=== PATIENT | female | born 1970 | race Two or more races ===

== ENCOUNTER 2017-02-28 15:35 | Emergency (ER) | payer OTHER ==
[~2017-02-28] VITALS: Ht 167.6 cm; Wt 90.7 kg
[2017-02-28 15:35] VITALS: BP 104/64
[2017-02-28] MEDS ORDERED: levETIRAcetam 500 MG in D5W 95 ML IVPB ONE (16:15)
[2017-02-28] MEDS ORDERED: Morphine Sulfate 4mg/ml Inj IVP ONE ×2 (16:15→19:45)
[2017-02-28 16:22] LABS: BASOPHILS % (AUTO) 1.5 % (0.0-2.0); EOSINOPHILS % (AUTO) 1.1 % (0.0-3.0); LYMPHOCYTES % (AUTO) 42.7 % (20.0-45.0); MEAN CORPUSCULAR HEMOGLOBIN 30.9 PG (27.0-31.0); MEAN CORPUSCULAR HGB CONC 32.3 G/DL (32.0-36.0); MEAN CORPUSCULAR VOLUME 96 FL (80-99); NEUTROPHILS % (AUTO) 46.7 % (45.0-75.0); PLATELET COUNT 264 K/UL (150-450); RED BLOOD COUNT 3.69 M/UL (4.20-5.40); RED CELL DISTRIBUTION WIDTH 12.7 % (11.6-14.8); WHITE BLOOD COUNT 5.7 K/UL (4.8-10.8)
[2017-02-28] MEDS ORDERED: levETIRAcetam 500mg vial IV ONE (16:57)
[2017-02-28 17:17] LABS: ALANINE AMINOTRANSFERASE 36 U/L (12-78); ALBUMIN/GLOBULIN RATIO 0.9 (1.0-2.7); ALCOHOL < 3 mg/dL; ANION GAP 13 mmol/L (5-15); ASPARTATE AMINO TRANSFERASE 27 U/L (15-37); CALCIUM 9.9 MG/DL (8.5-10.1); CARBON DIOXIDE 23 MMOL/L (21-32); CHLORIDE 106 MMOL/L (98-107); CREATININE 1.1 MG/DL (0.55-1.30); POTASSIUM 4.1 MMOL/L (3.5-5.1); SODIUM 142 MMOL/L (136-145); TOTAL PROTEIN 8.1 G/DL (6.4-8.2)
--- NOTE | 2017-02-28 17:25 | Diagnostic Imaging Report ---
Indication: Seizures Technique: Continuous helical CT scanning of the head was performed without intravenous contrast material. Axial and coronal 5 mm sections were generated. Radiation dose was minimized using automated exposure control Dose: Total Dose Length Product - DLP [address] Dose Index - CTDIvol(s) 70.38 mGy. Comparison: None Findings: The ventricular system is normal in size and configuration. There is no shift of midline structures. No abnormal extra-axial fluid collections are noted. There is no evidence of intracerebral bleeding. No other abnormal high or low density areas are noted within the brain. Intact calvarium. Visualized orbits and sinuses are unremarkable Impression: Normal CT scan of the head without contrast material. The CT scanner at [facility] is accredited by the [employer] and the scans are performed using protocols designed to limit radiation exposure to as low as reasonably achievable to attain images of sufficient resolution adequate for diagnostic evaluation.
[2017-02-28 18:00] VITALS: BP 122/80
--- NOTE | 2017-02-28 18:16 | Diagnostic Imaging Report ---
Indication: COUGH Technique: One view of the chest Comparison: none Findings: Lungs and pleural spaces are clear. Heart size is normal. Impression: No acute process
[2017-02-28 19:30] VITALS: BP 110/82
[2017-02-28] MEDS ORDERED: DILAUDID4 MG ORAL (19:49)
[2017-02-28] MEDS ORDERED: ATORVASTATIN CA40 MG ORAL (19:49)
[2017-02-28] MEDS ORDERED: OXYCONTIN10 MG ORAL (19:49)
[2017-02-28] MEDS ORDERED: HYDROCHLOROTH12.5 M2 ORAL (19:49)
[2017-02-28] MEDS ORDERED: LEVETIRACETAM500 MG ORAL (19:49)
[2017-02-28] MEDS ORDERED: PHENOBARBITAL100 MG ORAL (19:49)
[2017-02-28] MEDS ORDERED: CYCLOBENZAPRINE10 MG ORAL (19:49)
[2017-02-28] MEDS ORDERED: HYDROCHLOROTH12.5 MG ORAL (19:49)
[2017-02-28] MEDS ORDERED: AMLODIPINE BESY10 MG ORAL (19:49)
[2017-02-28] MEDS ORDERED: ATORVASTATIN CA80 MG ORAL (19:49)
[2017-02-28] MEDS ORDERED: BENAZEPRIL HCL40 MG ORAL (19:49)
[2017-02-28] MEDS ORDERED: ALBUTEROL2.5 MG/3 M INH (19:49)
[2017-02-28] MEDS ORDERED: DICLOFENAC SOD100 G1 TP (19:49)
[2017-02-28] MEDS ORDERED: VENTOLIN HFA18 GM INH (19:49)
--- NOTE | 2017-02-28 20:04 | Emergency Room Report ---
History of Present Illness General Chief Complaint: Seizure Source: Patient, EMS Present Illness HPI This patient has a history of sickle cell disease and seizure disorder. She states that she has chronic pain. She has had ongoing pain and was that her pain management clinic today and had a breakthrough seizure. She states she is taking her pain management medications. She states she has pain in her right hip and leg. She states this has been ongoing. She states she is also had a recent upper respiratory illness to include cough and congestion. She did see her primary care physician for this. She denies fever or chills. She denies nausea or vomiting. She is begging for narcotic pain medications. She is crying hysterically. She has no other complaints. Allergies: Coded Allergies: No Known Allergies (Unverified , 02/28/17) Patient History Past Medical History: see triage record, seizures, other - SCD Social History: Denies: smoking, alcohol use, drug use Last Menstrual Period: unk Reviewed Nursing Documentation: PMH: Agreed, PSxH: Agreed Nursing Documentation-PMH Hx Hypertension: Yes - Sickle Cell Hx Seizures: Yes Review of Systems All Other Systems: negative except mentioned in HPI Physical Exam Vital Signs Date Time Temp Pulse Resp B/P (MAP) Pulse Ox O2 Delivery O2 Flow Rate FiO2 02/28/17 15:31 97.3 123 24 104/64 100 Room Air Sp02 EP Interpretation: reviewed, normal General Appearance: no apparent distress, alert, GCS 15, non-toxic Head: normocephalic, atraumatic Eyes: bilateral eye normal inspection, bilateral eye PERRL ENT: hearing grossly normal, normal pharynx, no angioedema, normal voice Neck: full range of motion, supple/symm/no masses Respiratory: chest non-tender, lungs clear, normal breath sounds, speaking full sentences Cardiovascular #1: regular rate, rhythm, no edema Gastrointestinal: normal bowel sounds, non tender, soft, non-distended, no guarding, no rebound Rectal: deferred Musculoskeletal: back normal, other - Pain with ROM of RLE Neurologic: alert, oriented x3, responsive, motor strength/tone normal, sensory intact, speech normal Psychiatric: judgement/insight normal, memory normal, mood/affect normal, no suicidal/homicidal ideation Skin: normal color, no rash, warm/dry, well hydrated Medical Decision Making Diagnostic Impression: Primary Impression: Sickle cell pain crisis ER Course This patient has a history of chronic pain. I suspect there also may be narcotic dependence and narcotic seeking behavior. There is no evidence of anemia. The patient is requiring IV narcotics for pain control. The patient was transferred to [facility] for sickle cell pain crises. Dr. Worthington is the accepting physician. Laboratory Tests Test 02/28/17 15:40 White Blood Count 5.7 K/UL (4.8-10.8) Red Blood Count 3.69 M/UL (4.20-5.40) L Hemoglobin 11.4 G/DL (12.0-16.0) L Hematocrit 35.3 % (37.0-47.0) L Mean Corpuscular Volume 96 FL (80-99) Mean Corpuscular Hemoglobin 30.9 PG (27.0-31.0) Mean Corpuscular Hemoglobin Concent 32.3 G/DL (32.0-36.0) Red Cell Distribution Width 12.7 % (11.6-14.8) Platelet Count 264 K/UL (150-450) Mean Platelet Volume 6.0 FL (6.5-10.1) L Neutrophils (%) (Auto) 46.7 % (45.0-75.0) Lymphocytes (%) (Auto) 42.7 % (20.0-45.0) Monocytes (%) (Auto) 8.0 % (1.0-10.0) Eosinophils (%) (Auto) 1.1 % (0.0-3.0) Basophils (%) (Auto) 1.5 % (0.0-2.0) Sodium Level 142 MMOL/L (136-145) Potassium Level 4.1 MMOL/L (3.5-5.1) Chloride Level 106 MMOL/L (98-107) Carbon Dioxide Level 23 MMOL/L (21-32) Anion Gap 13 mmol/L (5-15) Blood Urea Nitrogen 11 mg/dL (7-18) Creatinine 1.1 MG/DL (0.55-1.30) Estimate Glomerular Filtration Rate 53.0 mL/min (>60) Glucose Level 91 MG/DL (74-106) Calcium Level 9.9 MG/DL (8.5-10.1) Total Bilirubin 0.1 MG/DL (0.2-1.0) L Aspartate Amino Transferase (AST) 27 U/L (15-37) Alanine Aminotransferase (ALT) 36 U/L (12-78) Alkaline Phosphatase 113 U/L (46-116) Total Creatine Kinase 124 U/L (26-308) Troponin I 0.000 ng/mL (0.000-0.056) Total Protein 8.1 G/DL (6.4-8.2) Albumin 3.8 G/DL (3.4-5.0) Globulin 4.3 g/dL Albumin/Globulin Ratio 0.9 (1.0-2.7) L Human Chorionic Gonadotropin, Qual Negative Phenobarbital Level 25.1 ug/mL (15-40) Serum Alcohol < 3 mg/dL EKG Diagnostic Results Rate: tachycardiac Rhythm: other - S.tachycardia ST Segments: no acute changes Rhythm Strip Diag. Results EP Interpretation: yes Rate: S.tachy Rhythm: no PVC's, no ectopy, other Other Impression S.tachycardia Chest X-Ray Diagnostic Results Chest X-Ray Diagnostic Results : Chest X-Ray Ordered: Yes # of Views/Limited/Complete: 1 View Indication: Other - cough EP Interpretation: No Interpretation: no consolidation, no effusion, no pneumothorax, no acute cardiopulmonary disease Impression: No acute disease Electronically Signed by: Sobeida Last Vital Signs Date Time Temp Pulse Resp B/P (MAP) Pulse Ox O2 Delivery O2 Flow Rate FiO2 02/28/17 18:00 81 18 122/80 100 Room Air 02/28/17 17:51 97.3 Disposition: XFER SHT-TRM HOSP Condition: Improved Referrals: [facility],REFERRING (PCP) DORIS VU D.O. Feb 28, 2017 20:04
[2017-03-01 06:59] VITALS: BP 110/82
--- NOTE | 2017-03-02 15:50 | Cardiology Report ---
APPROVED REPORT EKG Measurement Heart [id number] Sinus tachycardia Otherwise normal ECG
== END 2017-02-28 19:46 | disposition short-term general hospital (02) ==
LOC: EDBD 15:35 → EMR 16:56
DX: D57.00 Hb-SS disease with crisis, unspecified (principal); G40.909 Epilepsy, unspecified, not intractable, without status epilepticus; I10 Essential (primary) hypertension; M25.551 Pain in right hip; M79.604 Pain in right leg; R00.0 Tachycardia, unspecified
CPT/HCPCS: 36415; 70450; 71010; 80053; 80184; 80329; 82550; 82962; 84484; 84703; 85025; 93005; 96361; 96365; 96375; 96376; 99285; J1953; J2270